=== PATIENT | female | born 1990 | race Caucasian/White ===

== ENCOUNTER 2022-06-27 16:12 | Emergency (ER) | payer MEDICAID ==
[~2022-06-27] VITALS: Ht 157.5 cm; Wt 86.2 kg
[2022-06-27 16:35] VITALS: BP_SYST 117
--- NOTE | 2022-06-27 17:00 | NUR ---
RECEIVED PT FROM ISAI DAVIS. PT HAS C/O RECTAL BLEEDING, BRIGHT RED BLOOD X2 WEEKS. VSS WNL. DENIES PAIN AT THIS TIME. RESP E/U. R/A. ABDOMEN SOFT, NONDISTENDED, NONTENDER. PT HAS C/O OF INTERMITTENT CONSTIPATION. NO BM TODAY. DENIES N/V. SKIN WARM, CAP REFILL < 3 SECS, CDI, NO EDEMA. DISTAL PULSES NORMAL. SIDERAILS UP X2.
--- NOTE | 2022-06-27 17:05 | NUR ---
DR. BRINK AT BEDSIDE TO ASSESS PT.
--- NOTE | 2022-06-27 17:15 | NUR ---
LABS OBTAINED. IV CATH PLACED TO LAC 20G. SITE WNL.
[2022-06-27] MEDS ORDERED: MAG HYDROX/AL HYDROX/SIMETH 30 ML, DICYCLOMINE HCL 20 MG, LIDOCAINE VISCOUS 2% 15ML (PO... PO ONE ×3 (17:30)
[2022-06-27] MEDS ORDERED: FAMOTIDINE 20 MG TABLET PO ONE (17:30)
[2022-06-27 17:57] LABS: INR 0.9 (0.8-1.2); PROTHROMBIN TIME 9.7 SECS (9.5-12.5)
[2022-06-27 18:05] LABS: CREATININE 0.8 mg/dL (0.55-1.30); POTASSIUM 3.7 mmol/L (3.5-5.1)
[2022-06-27 18:08] LABS: WHITE BLOOD COUNT (AUTO) 6.1 K/uL (4.8-10.8)
[2022-06-27 18:09] LABS: ALBUMIN 3.5 g/dL (3.4-4.8); TOTAL BILIRUBIN 0.2 mg/dL (0.0-1.0)
[2022-06-27 18:13] LABS: BASOPHILS % (AUTO) 0.6 % (0.0-2.0); EOSINOPHILS # (AUTO) 0.1 K/uL (0.0-0.4); HEMATOCRIT 33.8 % (36-48); HEMOGLOBIN 11.3 g/dL (12.0-16.0); LYMPHOCYTES # (AUTO) 2.8 K/uL (1.0-5.5); LYMPHOCYTES % (AUTO) 45.7 % (20.5-51.5); MEAN CORPUSCULAR HEMOGLOBIN 26 pg (27-31); MEAN CORPUSCULAR HGB CONC 34 % (32-36); MEAN CORPUSCULAR VOLUME 78 fL (79.0-98.0); MONOCYTES # (AUTO) 0.2 K/uL (0.0-1.0); MONOCYTES % (AUTO) 3.8 % (1.7-9.3); NEUTROPHILS # (AUTO) 2.9 K/uL (1.8-7.7); NEUTROPHILS % (AUTO) 47.9 % (40.0-70.0); PLATELET COUNT (AUTO) 229 K/uL (130-430); RED BLOOD CELL COUNT(AUTO) 4.35 MIL/uL (4.2-6.2); RED CELL DISTRIBUTION WIDTH 21.6 % (9.0-15.0)
[2022-06-27] MEDS ORDERED: FAMO-132 PO (19:04)
[2022-06-27] MEDS ORDERED: PEPTAB PO (19:04)
--- NOTE | 2022-06-27 19:39 | NUR ---
ENDORSED ALL CARE TO ISAI CABRERA. ALL QUESTIONS AND CONCERNS ADDRESSED.
--- NOTE | 2022-06-27 19:39 | NUR ---
Urine: Light Yellow, clear, sent to lab.
[2022-06-27 20:06] VITALS: BP_SYST 115
--- NOTE | 2022-06-27 20:06 | NUR ---
Patient given written and verbal discharge instructions and verbalizes understanding. ER Dr. Maki discussed with patient the results and treatment provided. Patient in stable condition. ID arm band removed. IV catheter removed intact and dressing applied, no active bleeding. Rx of pepcid and pepto-bismol tab given. Patient educated on pain management and to follow up with PMD. Pain Scale 0. Opportunity for questions provided and answered. Medication side effect fact sheet provided.
== END 2022-06-27 20:06 | disposition home or self-care (01) ==
LOC: SED 16:12
DX: K29.70 Gastritis, unspecified, without bleeding (principal); R10.10 Upper abdominal pain, unspecified; D64.9 Anemia, unspecified; Z79.899 Other long term (current) drug therapy
CPT/HCPCS: 99283; 80053; 83690; 85025; 85610; 85730; 86886; 86900; 86901; 36415; 81002; 81025; 82272; J2001; 99284